=== PATIENT | female | born 1990 | race Two or more races ===

== ENCOUNTER → 2024-08-03 | Outpatient (CLI) | payer MEDICAID | END | disposition home or self-care (01) | LOC: LAB 10:30 | PROVIDERS: ATTEND Obstetrics & Gynecology | DX: N91.2 Amenorrhea, unspecified (principal) | CPT/HCPCS: 36415; 84144; 84702 ==

== ENCOUNTER → 2024-08-05 | Outpatient (CLI) | payer MEDICAID | END | disposition home or self-care (01) | LOC: LAB 10:52 | PROVIDERS: ATTEND Obstetrics & Gynecology | DX: N91.2 Amenorrhea, unspecified (principal) | CPT/HCPCS: 36415; 84144; 84702 ==

== ENCOUNTER → 2024-08-12 | Outpatient (CLI) | payer MEDICAID ==
[2024-08-12 11:12] LABS: Basophils # (auto) 0 10 ^3/uL (0-0.2); Basophils % (auto) 0.4 % (0.0-2.0); Eosinophils # (auto) 0.1 10 ^3/uL (0-0.8); Hematocrit 42.5 % (36.0-46.0); Hemoglobin 14.6 g/dL (12.2-16.2); Lymphocytes # (auto) 1.9 10 ^3/uL (0.4-5.4); Lymphocytes % (auto) 33.4 % (10.0-50.0); Mean Corpuscular Hemoglobin 32.4 pg (28.0-32.0); Mean Corpuscular Hgb Conc. 34.5 g/dL (32.0-36.0); Mean Corpuscular Volume 94.1 fL (80.0-100.0); Monocytes # (auto) 0.4 10 ^3/uL (0-1.3); Monocytes % (auto) 7.1 % (0.0-12.0); Neutrophils # (auto) 3.4 10 ^3/uL (1.6-8.6); Neutrophils % (auto) 58.1 % (37.0-80.0); Nucleated Red Blood Cells % 0.2 %; Platelet Count (auto) 259 10^3/uL (140-450); Red Blood Cells 4.52 10^6/uL (4.0-5.20); Red Cell Distribution Width 12.8 % (11.8-14.3); White Blood Cell 5.8 10^3/uL (4.4-10.8)
[2024-08-12 11:17] LABS: Amphetamine Screen, Urine Neg (NEGATIVE); Benzodiazephine Screen, Urine Neg (NEGATIVE)
[2024-08-12 11:18] LABS: Barbiturate Scree,Urine Neg (NEGATIVE); Cocaine Screen, Urine Neg (NEGATIVE); Opiate Scree,Urine Neg (NEGATIVE); Phencyclidine Screen, Urine Neg (NEGATIVE)
[2024-08-12 11:19] LABS: Cannabinoid Screen, Urine Neg (NEGATIVE)
[2024-08-13 08:06] LABS: RPR Non Reactive (Non Reactive)
[2024-08-13 13:06] LABS: Chlamydia Trachomatis, NAA Negative (Negative); Neisseria gonorrhoeae, NAA Negative (Negative)
== END | disposition home or self-care (01) ==
LOC: LAB 09:45
PROVIDERS: ATTEND Obstetrics & Gynecology
DX: Z31.430 Encounter of female for testing for genetic disease carrier status for procreative management (principal); O23.40 Unspecified infection of urinary tract in pregnancy, unspecified trimester; Z20.1 Contact with and (suspected) exposure to tuberculosis; N39.0 Urinary tract infection, site not specified
CPT/HCPCS: 36415; 80307; 83036; 84144; 84702; 85025; 86592; 86703; 86762; 86850; 86900; 86901; 87086; 87340

== ENCOUNTER 2024-08-30 15:21 | Emergency (ER) | payer MEDICAID ==
[~2024-08-30] VITALS: Ht 162.6 cm; Wt 62.0 kg
[2024-08-30] MEDS: SODIUM CHLORIDE 0.9% 1,000 ML IV ONE (16:15)
[2024-08-30 17:21] LABS: Urine Bacteria None Seen /hpf (None Seen)
[2024-08-30 18:08] LABS: Urine Amorphous Crystal FEW /hpf (None Seen); Urine Blood Negative /uL (Negative); Urine Clarity Turbid (Clear); Urine Color Yellow (Yellow); Urine Mucus FEW (None Seen); Urine Protein, UAD 1+ (Negative); Urine Specific Gravity 1.027 (1.001-1.035); Urine Urobilinogen 2 mg/dL (Negative); Urine WBC 12 /hpf (0 - 5); Urine pH 7.5 (5.0-9.0)
[2024-08-30 18:09] VITALS: BP 102/69; PULSE 84; RESP 14; TEMP 99.2; O2SAT 95
[2024-08-30] MEDS ORDERED: ZOFR4T PO (18:19)
--- NOTE | 2024-08-30 18:19 | ED.PDOC ---
NURSERY RN HPI Comments 33-year-old female complaining of excessive vomiting for the last two weeks. Patient states she was seen by doctors and, she was prescribed Phenergan and is taking it for the last two days but it was not help. Has been unable to hold any food down. Patient states it vomiting all day long. Patient states she was eight weeks , so her 4th . Chief Complaint: Nausea/Vomiting Time Seen by MD: 16:06 Reviewed Notes: Nurses Notes Allergies: Coded Allergies: No Known Drug Allergy (Verified Allergy, Unknown, 08/30/24) Information Source: Patient Past Medical History PAST MEDICAL HISTORY: Denies Surgical History: Denies all surgeries SERVICE PROMOTER SALESPERSON History: No Pertinent SERVICE PROMOTER SALESPERSON History Constitutional: denies: chills, diaphoresis, fatigue, fever, malaise, sweats, weakness, others EENTM: denies: blurred vision, double vision, ear bleeding, ear discharge, ear drainage, ear pain, ear ringing, eye pain, eye redness, hearing loss, mouth pain, mouth swelling, nasal discharge, nose bleeding, nose congestion, nose pain, photophobia, tearing, throat pain, throat swelling, voice changes, others Respiratory: denies: cough, hemoptysis, orthopnea, SOB at rest, shortness of breath, SOB with excertion, stridor, wheezing, others Cardiovascular: denies: chest pain, dizzy spells, diaphoresis, Dyspnea on exertion, edema, irregular heart beat, left arm pain, lightheadedness, palpitations, PND, syncope, others Gastrointestinal: reports: nausea, vomiting; denies: abdomen distended, abdominal pain, blood streaked bowels, constipated, diarrhea, dysphagia, difficulty swallowing, hematemesis, melena, poor appetite, poor fluid intake, rectal bleeding, rectal pain, others Genitourinary: denies: abnormal vagina bleeding, burning, dyspareunia, dysuria, flank pain, frequency, hematuria, incontinence, pain, , vagina discharge, urgency, others Neurological: denies: dizziness, fainting, headache, left sided numbness, left sided weakness, numbness, paresthesia, pre-existing deficit, right sided numbness, right sided weakness, seizure, speech problems, tingling, tremors, weakness, others Musculoskeletal: denies: back pain, gout, joint pain, joint swelling, muscle pain, muscle stiffness, neck pain, others Integumetry: denies: bruises, change in color, change in hair/nails, dryness, laceration, lesions, lumps, rash, wounds, others Allergic/Immunocompromised: denies: Difficulty Healing, Frequent Infections, Hives, Itching, others Physical Exam General Appearance: No Apparent Distress, Normal HEENT: Normal ENT Inspection, Pharynx Normal, TMs Normal Neck: Full Range of Motion, Non-Tender, Normal, Normal Inspection Respiratory: Chest Non-Tender, Lungs Clear, No Accessory Muscle Use, No Respiratory Distress, Normal Breath Sounds Cardiovascular: No Edema, No JVD, No Murmur, No Gallop, Normal Peripheral Pulses, Regular Rate/Rhythm Breast Exam: Deferred Gastrointestinal: No Organomegaly, Non Tender, No Pulsatile Mass, Normal Bowel Sounds, Soft Genitalia: Deferred Pelvic: Deferred Rectal: Deferred Extremities: No calf tenderness, Normal capillary refill, Normal inspection, Normal range of motion, Non-tender, No pedal edema Musculoskeletal : Apperance: Normal Neurologic: Alert, die finisher forging II-XII nml as Tested, No Motor Deficits, Normal Affect, Normal Mood, No Sensory Deficits Cerebellar Function: Normal Reflexes: Normal Skin: Dry, Normal Color, Warm Lymphatic: No Adenopathy Was a procedure done? Was a procedure done?: No Differential Diagnosis (SERVICE PROMOTER SALESPERSON) Comments Hyperemesis X-Ray, Labs, Meds, VS Vital Signs Date Time Temp Pulse Resp B/P (MAP) Pulse Ox O2 Delivery O2 Flow Rate FiO2 08/30/24 16:00 98.0 107 18 110/73 (85) 99 Lab Test 08/30/24 16:02 Range/Units Urine Color Yellow Yellow Urine Clarity Turbid H Clear Urine pH 7.5 5.0-9.0 Urine Specific [place] 1.027 1.001-1.035 Urine Protein 1+ H Negative Urine Ketones 3+ H Negative Urine Blood Negative Negative /uL Urine Nitrite Negative Negative Urine Bilirubin Negative Negative Urine Urobilinogen 2 H Negative mg/dL Urine Leukocyte Esterase 2+ Negative /uL Urine RBC 5 0 - 4 /hpf Urine WBC 12 0 - 5 /hpf Urine Squamous Epithelial Cells Mod <5 /hpf Urine Amorphous Crystals Few None Seen /hpf Urine Bacteria None seen None Seen /hpf Urine Mucus Few None Seen Urine Glucose Normal Normal mg/dL X-Ray, Labs, Meds, VS Comment Imaging: X-rays and CT scans were reviewed and interpreted by this provider, imaging shows no fractures and no pathological disease. Pending radiology review. Laboratory: Labs reviewed and interpreted by this provider. No significant abnormalities noted. Patient has prior medical visits reviewed. Med reconciliation performed Vital signs reviewed Time of 1ST Reevaluation: 18:19 Reevaluation 1ST: Improved Patient Education/Counseling: Diagnosis, Treatment, Need For Follow Up (Patient advised to follow-up in the emergency room in the next 24 to 48 hours if symptoms do not improve. Advised follow-up with PCP in the next 3 to 5 days. Patient verbalized understanding. ) Family Education/Counseling: Diagnosis Departure 1 Departure Time of Disposition: 18:16 Impression: Primary Impression: Hyperemesis gravidarum Disposition: HOME / SELF CARE / HOMELESS Condition: Fair e-Prescriptions Ondansetron Odt 4MG Tab (ZOFRAN PO) 4 Mg Tb 4 MG PO TID PRN, #20 TAB ODT TAB-DISSOLVE IN MOUTH, THEN SWALLOW Prov: JOSH ALMARAZ 08/30/24 Discharged With: Self Critical Care Note Critical Care Time?: No Stability Stability form required: No Heart Score Heart Score: Heart Score Response (Comments) Value History N/A 0 EKG N/A 0 Age N/A 0 Risk Factors N/A 0 Troponin N/A 0 Total 0 JOSH ALMARAZ Aug 30, 2024 18:19
[2024-08-30] MEDS: ONDANSETRON HCL 4 MG/2 ML VIAL IV ONE (18:48)
== END 2024-08-30 19:20 | disposition home or self-care (01) ==
LOC: ER 15:27
DX: O21.0 Mild hyperemesis gravidarum (principal); Z3A.08 8 weeks gestation of pregnancy
CPT/HCPCS: 81001; 96361; 96374; 99283; J2405; J7030

== ENCOUNTER → 2025-01-18 | Outpatient (CLI) | payer MEDICAID ==
[~2025-01-18] MED LIST: ZOFR4T PO
[2025-01-18 09:03] LABS: Basophils # (auto) 0 10 ^3/uL (0-0.2); Basophils % (auto) 0.2 % (0.0-2.0); Eosinophils # (auto) 0.1 10 ^3/uL (0-0.8); Hematocrit 35.7 % (36.0-46.0); Hemoglobin 12.1 g/dL (12.2-16.2); Lymphocytes # (auto) 2.1 10 ^3/uL (0.4-5.4); Lymphocytes % (auto) 26.2 % (10.0-50.0); Mean Corpuscular Hemoglobin 32.3 pg (28.0-32.0); Mean Corpuscular Hgb Conc. 33.8 g/dL (32.0-36.0); Mean Corpuscular Volume 95.5 fL (80.0-100.0); Monocytes # (auto) 0.6 10 ^3/uL (0-1.3); Monocytes % (auto) 7.4 % (0.0-12.0); Neutrophils # (auto) 5.2 10 ^3/uL (1.6-8.6); Neutrophils % (auto) 65.2 % (37.0-80.0); Nucleated Red Blood Cells % 0.1 %; Platelet Count (auto) 209 10^3/uL (140-450); Red Blood Cells 3.74 10^6/uL (4.0-5.20); Red Cell Distribution Width 13.5 % (11.8-14.3)
== END | disposition home or self-care (01) ==
LOC: LAB 08:29
PROVIDERS: ATTEND Obstetrics & Gynecology
DX: Z34.80 Encounter for supervision of other normal pregnancy, unspecified trimester (principal); Z3A.00 Weeks of gestation of pregnancy not specified
CPT/HCPCS: 36415; 82951; 83036; 85025

== ENCOUNTER 2025-02-15 10:56 | Observation (INO) | payer MEDICAID ==
[~2025-02-15] VITALS: Ht 162.6 cm; Wt 61.2 kg
[2025-02-15] MEDS: BETAMETHASONE ACET (30mg/5ml) 5ml Vial 6mg/ml IM ONE (12:39)
[2025-02-15] MEDS ORDERED: NIFE10CA52 PO (12:45)
[2025-02-16] MEDS ORDERED: PREN-96 PO ×2 (11:29)
--- NOTE | 2025-02-16 17:15 | DVHDS2 ---
Physician Discharge Progress N Final Diagnosis: ptl Operations or Procedures: Operations or Procedures nst,sono Condition on Discharge: Good Disposition: Home Discharge Instructions: Diet: Regular Activity: Light activity Medications: na Follow Up Care: Specialist: 1d Discharge Statement: "Patient was advised to return to the ER or call 911 if any headaches, dizziness, shortness of breath, chest pain, abdominal pain, bleeding, fevers, or worsening of medical condition. Patient was counseled about treatment plan, medications, possible side effects, patientverbalized understanding. All questions were answered to the best of my ability. This discharge took greater then 30 minutes in planning, reviewing documentation, counseling the patient, and discussing with other team members." Visit Coding OBGYN Date of Service: Feb 15, 2025 Billing Provider: MANUEL PHELAN DO MAINTENANCE PLUMBER Common Visit Codes: [id number] INP/OBS CARE (HIGH) MAINTENANCE PLUMBER Procedure Codes: 72117-35- NON-STRESS TEST MANUEL PHELAN DO Feb 16, 2025 17:15
== END 2025-02-15 13:04 | disposition home or self-care (01) ==
LOC: LDRP 10:56
PROVIDERS: ADMIT Obstetrics & Gynecology; ATTEND Obstetrics & Gynecology
DX: O60.03 Preterm labor without delivery, third trimester (principal); Z79.899 Other long term (current) drug therapy; Z3A.32 32 weeks gestation of pregnancy
CPT/HCPCS: 59025; 81002; 94760; 96372; G0378; J0702

== ENCOUNTER 2025-02-16 11:00 | Observation (INO) | payer MEDICAID ==
[~2025-02-16] VITALS: Ht 162.6 cm; Wt 70.3 kg
[~2025-02-16 11:00] MED LIST changes: +NIFE10CA52 PO
[2025-02-16] MEDS ORDERED: PREN-96 PO ×2 (11:29)
[2025-02-16] MEDS: BETAMETHASONE ACET (30mg/5ml) 5ml Vial 6mg/ml IM ONE (11:39)
--- NOTE | 2025-02-16 12:26 | DVHDS2 ---
Physician Discharge Progress N Final Diagnosis: ptl 33wks Operations or Procedures: Operations or Procedures nst,sono Condition on Discharge: Good Disposition: Home Discharge Instructions: Diet: Regular, Consistent carbohydrate Activity: Light activity Medications: na Follow Up Care: Specialist: 1w Discharge Statement: "Patient was advised to return to the ER or call 911 if any headaches, dizziness, shortness of breath, chest pain, abdominal pain, bleeding, fevers, or worsening of medical condition. Patient was counseled about treatment plan, medications, possible side effects, patientverbalized understanding. All questions were answered to the best of my ability. This discharge took greater then 30 minutes in planning, reviewing documentation, counseling the patient, and discussing with other team members." Visit Coding OBGYN Date of Service: Feb 16, 2025 Billing Provider: MANUEL PHELAN DO BEHAVIORAL MODIFICATION ASSISTANT Common Visit Codes: [id number] OBS CARE (HIGH) BEHAVIORAL MODIFICATION ASSISTANT Procedure Codes: 63681-79- NON-STRESS TEST MANUEL PHELAN DO Feb 16, 2025 12:26
== END 2025-02-16 11:59 | disposition home or self-care (01) ==
LOC: LDRP 11:00 → UNDOADMOB 11:00 → LDRP 11:09
PROVIDERS: ADMIT Obstetrics & Gynecology; ATTEND Obstetrics & Gynecology
DX: O60.03 Preterm labor without delivery, third trimester (principal); O99.891 Other specified diseases and conditions complicating pregnancy; M54.9 Dorsalgia, unspecified; Z3A.32 32 weeks gestation of pregnancy; Z79.899 Other long term (current) drug therapy; Z98.890 Other specified postprocedural states
CPT/HCPCS: 59025; 81002; 94760; 96372; G0378

== ENCOUNTER 2025-02-21 06:30 | Observation (INO) | payer MEDICAID ==
[~2025-02-21] VITALS: Ht 162.6 cm; Wt 68.5 kg
[~2025-02-21 06:30] MED LIST changes: +PREN-96 PO
--- NOTE | 2025-02-21 11:59 | DVH ---
CLINICAL HISTORY: labor. COMPARISON: None TECHNIQUE: biophysical profile was performed. Transabdominal sonographic images of the fetus we re obtained. Transvaginal imaging was also performed to evaluate the cervix. FINDINGS: The fetus is in cephalic position. heart rate measures 124 BPM. Amniotic fluid index measures 9.6 cm. The placenta is anterior in position with no evidence of previa or abruption. Cervix appears closed and measures up to 3.4 cm in length. BPP profile is an overall score of 8/8, with 2/2 points for breathing, with at least one episode of breathing over a 30 second duration during a 30 minute observation, 2/2 points for m ovements, with 3 or more discrete body or limb movements, 2/2 points for tone, with one or more episodes of extremity extension with return to flexion, or opening and closing of hand, and 2/ 2 points for amniotic fluid, with at least 1 pocket of amniotic fluid that measures 2 cm in 2 perpend icular planes. IMPRESSION: 1. BPP score of 8/8. 2. Cervix appears closed and measures up to 3.4 cm in length.
[2025-02-21] MEDS ORDERED: FAMO20TA10 PO (12:55)
--- NOTE | 2025-02-21 22:39 | DVHDS2 ---
Physician Discharge Progress N Final Diagnosis: testing for PTL Operations or Procedures: Operations or Procedures 34yo IUP@33.5wks. taking procardia, denies UCs/VB VSS NST reactive FKC/PTL precautions reviewed. Dr. Guzman consulted, agrees with POC. Other Interventions Other Interventions [facility] [id number] [place] [id number] Ph: [phone] DIAGNOSTIC IMAGING Diagnostic Imaging Report : [id number] Signed PATIENT: LILLY CHAVEZ ACCT: [id number] UNIT: [id number] : 1990 LOC: LD ROOM / BED: [facility] / A AGE / SEX: 34 / F ADM STATUS: ADM IN SERVICE 112 ORDERING PHYSICIAN: RADHA KAYE CNM PROCEDURE(s): BPP - BIOPHYSICAL PROFILE REASON: PTL ORDER NUMBER(s): [id number], ACCESSION NUMBER(s): [id number] CLINICAL HISTORY: labor. COMPARISON: None TECHNIQUE: biophysical profile was performed. Transabdominal sonographic images of the fetus were obtained. Transvaginal imaging was also performed to evaluate the cervix. FINDINGS: The fetus is in cephalic position. heart rate measures 124 BPM. Amniotic fluid index measures 9.6 cm. The placenta is anterior in position with no evidence of previa or abruption. Cervix appears closed and measures up to 3.4 cm in length. BPP profile is an overall score of 8/8, with 2/2 points for breathing, with at least one episode of breathing over a 30 second duration during a 30 minute observation, 2/2 points for movements, with 3 or more discrete body or limb movements, 2/2 points for tone, with one or more episodes of extremity extension with return to flexion, or opening and closing of hand, and 2/2 points for amniotic fluid, with at least 1 pocket of amniotic fluid that measures 2 cm in 2 perpendicular planes. IMPRESSION: 1. BPP score of 8/8. 2. Cervix appears closed and measures up to 3.4 cm in length. ATED BY: COSTA HOPKINS DO DICTATED DATE/TIME: 02/21/251156 SIGNED BY: COSTA HOPKINS DO SIGNED DATE/TIME: 02/21/251156 CC: Condition on Discharge: Stable Disposition: Home Discharge Instructions: Diet: Regular Activity: See Comment Activity comment: pelvic rest Follow Up/Referral: Maintain all regularly scheduled follow up appointments with Dr. Guzman and [facility] for scheduled NST/BPP. Medications: Continue all medications as directed by OB Physician. Follow Up Care: Specialist: f/u in 1 wk Discharge Statement: "Patient was advised to return to the ER or call 911 if any headaches, dizziness, shortness of breath, chest pain, abdominal pain, bleeding, fevers, or worsening of medical condition. Patient was counseled about treatment plan, medications, possible side effects, patientverbalized understanding. All questions were answered to the best of my ability. This discharge took greater then 30 minutes in planning, reviewing documentation, counseling the patient, and discussing with other team members." Visit Coding OBGYN Date of Service: Feb 21, 2025 Billing Provider: RADHA KAYE CNM BUDGET CONTROLLER Common Visit Codes: [id number] OBS CARE (HIGH) BUDGET CONTROLLER Procedure Codes: 67459-31- NON-STRESS TEST RADHA KAYE CNM Feb 21, 2025 22:39
== END 2025-02-21 13:50 | disposition home or self-care (01) ==
LOC: LDRP 11:00
PROVIDERS: ADMIT Obstetrics & Gynecology; ATTEND Obstetrics & Gynecology
DX: O60.03 Preterm labor without delivery, third trimester (principal); Z98.890 Other specified postprocedural states; Z79.899 Other long term (current) drug therapy; Z3A.33 33 weeks gestation of pregnancy
CPT/HCPCS: 59025; 76819; 81002; 94760; G0378

== ENCOUNTER 2025-02-28 07:02 | Inpatient (IN) | payer MEDICAID ==
[~2025-02-28] VITALS: Ht 162.6 cm; Wt 69.9 kg
[~2025-02-28 07:02] MED LIST changes: +FAMO20TA10 PO
[2025-03-31 20:25] LABS: Fern Testing Negative
[2025-04-01] MEDS ORDERED: LIDOCAINE 2%HCL (LOCAL ANESTH.) INJ 20ML MDV IJ PRN
[2025-04-01] MEDS ORDERED: BUTORPHANOL TARTRATE 2 MG/1 ML VIAL IV PRN
[2025-04-01] MEDS ORDERED: NALBUPHINE HCL 10 MG/1ml INJECTION IV PRN
--- NOTE | 2025-04-01 00:14 | DVH ---
LIMITED SURVEY CLINICAL HISTORY: Induction of Labor/Confirm Presenting Part COMPARISON: Biophysical profile 02/21/2025. TECHNIQUE: Real-time grayscale, color flow and M-mode imaging of the gravid uterus is performed. FINDINGS: Single living intrauterine gestation. Cephalic presentation. Average ultrasound age 36 weeks 5 days. Estimated due date 04/23/2025. heart rate 141 beats per minute. measurements (cm): BPD 9.3, HC 32.6, AC 31.9, FL 7.1. Estimated weight: 2896 g The placenta is anterior, grade 2. The cervix is not clearly visualized. No definite evidence of abr uption or previa at this time. Amniotic fluid index 13.2 cm. Juice Weigher reports good movement on real-time imaging. IMPRESSION: Single living intrauterine as above.
[2025-04-01] MEDS ORDERED: LACT. RINGERS/OXYTOCIN 20UNITS 500 ML IV ONE ×2 (00:15→00:45)
[2025-04-01] MEDS: LACTATED RINGER'S 1,000 ML IV SCH (00:27)
[2025-04-01 00:52] LABS: Basophils # (auto) 0 10 ^3/uL (0-0.2); Basophils % (auto) 0.3 % (0.0-2.0); Eosinophils # (auto) 0 10 ^3/uL (0-0.8); Eosinophils % (auto) 0.5 % (0.0-7.0); Hematocrit 33.8 % (36.0-46.0); Hemoglobin 11.8 g/dL (12.2-16.2); Lymphocytes # (auto) 2.3 10 ^3/uL (0.4-5.4); Lymphocytes % (auto) 27.2 % (10.0-50.0); Mean Corpuscular Hemoglobin 32.4 pg (28.0-32.0); Mean Corpuscular Volume 92.6 fL (80.0-100.0); Monocytes # (auto) 0.5 10 ^3/uL (0-1.3); Monocytes % (auto) 5.5 % (0.0-12.0); Neutrophils # (auto) 5.6 10 ^3/uL (1.6-8.6); Neutrophils % (auto) 66.5 % (37.0-80.0); Nucleated Red Blood Cells % 0.1 %; Platelet Count (auto) 173 10^3/uL (140-450); Red Blood Cells 3.65 10^6/uL (4.0-5.20); White Blood Cell 8.4 10^3/uL (4.4-10.8)
[2025-04-01] MEDS: DERMOPLAST 60ML BOTTLE TOP PRN (00:57)
[2025-04-01] MEDS: WITCH HAZEL-GLYCERIN PAD TOP PRN (00:57)
[2025-04-01] MEDS: PHISODERM TOP SOLN 240ML BTL TOP PRN (00:58)
[2025-04-01 01:09] LABS: INR 0.88 (0.9-1.15); Partial Thromboplastin Time 24.5 SEC (24.5-34.5); Prothrombin Time 9.4 sec (9.3-11.8)
[2025-04-01 01:12] LABS: Urine Bacteria None Seen /hpf (None Seen)
[2025-04-01 01:16] LABS: Alanine Aminotransferase 12 U/L (7-40); Albumin 3.8 g/dL (3.2-4.8); Anion Gap 11 (5-15); Aspartate Aminotransferase 17 U/L (13-40); Blood Urea Nitrogen 11 mg/dL (9-23); Carbon Dioxide 22 mmol/L (20-31); Chloride 105 mmol/L (98-107); Potassium 3.6 mmol/L (3.5-5.1); Sodium 138 mmol/L (136-145); Total Protein 6.4 g/dL (5.7-8.2)
[2025-04-01 01:17] LABS: Bilirubin, Total 0.6 mg/dL (0.2-1.0)
[2025-04-01 01:19] LABS: Alkaline Phosphatase 445 U/L (46-116); Calcium 8.6 mg/dL (8.7-10.4); Glucose 140 mg/dL (74-106)
[2025-04-01 01:28] LABS: Urine Blood Negative /uL (Negative); Urine Clarity Clear (Clear); Urine Color Colorless (Yellow); Urine Protein, UAD Negative (Negative); Urine Specific Gravity 1.007 (1.001-1.035); Urine Squamous Epithelial Cell FEW /hpf (<5); Urine Urobilinogen Normal (Negative); Urine WBC 2 /HPF (0-5); Urine pH 6.5 (5.0-9.0)
[2025-04-01 01:44] LABS: Amphetamine Screen, Urine Neg (NEGATIVE); Barbiturate Scree,Urine Neg (NEGATIVE); Benzodiazephine Screen, Urine Neg (NEGATIVE); Cannabinoid Screen, Urine Neg (NEGATIVE); Cocaine Screen, Urine Neg (NEGATIVE); Opiate Scree,Urine Neg (NEGATIVE); Phencyclidine Screen, Urine Neg (NEGATIVE)
[2025-04-01] MEDS: miSOPROStol 50 MCG per PRE-CUT 1/2 TAB PO PRN (04:01)
--- NOTE | 2025-04-01 06:03 | DVHHP ---
ADMIT DATE: 04/01/2025 CHIEF COMPLAINT: Labor. HISTORY OF PRESENT ILLNESS: The patient is a 34-year-old, 4, para 3 with EDC 04/06/2025, estimated gestational age of 39 weeks, admitted for labor. The patient was noted to be 3 cm, 80%, -2. She was originally scheduled for induction on 04/01/2024. However, she presented in early labor. PAST MEDICAL HISTORY: None. PAST SURGICAL HISTORY: None. SOCIAL HISTORY: None. FAMILY HISTORY: None. OBSTETRIC/GYNECOLOGIC HISTORY: Three normal vaginal deliveries. GBS negative. Blood type O+. REVIEW OF SYSTEMS: Consistent with HPI. ALLERGIES: No known drug allergies. PHYSICAL EXAMINATION: VITAL SIGNS: Stable. Afebrile. HEENT: Within normal limits. CARDIOVASCULAR: Regular rate and rhythm. LUNGS: Clear to auscultation. BREASTS: Symmetrical. No masses. ABDOMEN: Gravid. Positive heart tones. PELVIC: 3 cm, 80%, -2. EXTREMITIES: No clubbing, cyanosis, edema. IMPRESSION: Intrauterine at 39+ weeks, in labor. PLAN: Augmentation of labor. Informed consent obtained. DO GER Meng/CLINTON TID: [id number] RECEIPT: [id number]
[2025-04-01] MEDS: NALOXONE HCL 0.4 MG/ML VIAL IV ONE (07:30)
--- NOTE | 2025-04-01 08:24 | DVHPN2 ---
Chief Complaints Patient reports: No new complaints Nursing reports: No new complaints Objective Medications Current Medications Medications (Trade) Dose Ordered Sig/Jeremy Route PRN Reason Start Time Stop Time Status Last Admin Benzocaine (Dermoplast) 1 applic PRN PRN TOP PERINEAL AREA DISCOMFORT 04/01/25 00:00 04/01/25 00:57 Lactated Ringer's 1,000 ml @ 125 mls/hr Q8H IV 04/01/25 00:00 04/01/25 00:27 Lidocaine HCl (Xylocaine) 20 ml ONCE PRN IJ PERINEAL AREA DISCOMFORT 04/01/25 00:00 Misoprostol (Cytotec) 50 mcg Q4HPRN PRN PO CERVICAL RIPENING 04/01/25 04:00 04/01/25 04:01 Nalbuphine HCl (Nubain) 10 mg Q4HP PRN IV MODERATE PAIN (4-6 PAIN SCALE) 04/01/25 00:00 Oxytocin 1,000 ml @ 6 ml/hr Q24H IV 04/01/25 04:45 Sodium Lauryl Sulfate (Phisoderm) 240 ml PRN PRN TOP PERINEAL AREA DISCOMFORT 04/01/25 00:00 04/01/25 00:58 Witch Vicki (Tucks) 1 pad PRN PRN TOP PERINEAL AREA DISCOMFORT 04/01/25 00:00 04/01/25 00:57 Others ve-4cm/70/-2 Studies Laboratory Tests 04/01/25 00:28 Test 04/01/25 00:28 Range/Units Serum Glucose 140 H 74-106 mg/dL Ass/Plan Assessment early labor Plan start pitocin Visit Coding OBGYN Date of Service: Apr 01, 2025 Billing Provider: MANUEL PHELAN DO HEALTHCARE ASSOCIATE Common Visit Codes: [id number] OBS CARE (HIGH) HEALTHCARE ASSOCIATE Procedure Codes: 86528-34- NON-STRESS TEST MANUEL PHELAN DO Apr 01, 2025 08:24
[2025-04-01] MEDS: LIDOCAINE HCL 2 %PF INJ 10ML AMP IJ ONE (08:38)
[2025-04-01] MEDS: ROPIVACAINE HCL 200 ML ONE (08:40)
[2025-04-01] MEDS: ePHEDrine SULFATE 50 MG/ML AMP IV ONE (09:14)
[2025-04-01] MEDS: LACT. RINGERS/OXYTOCIN 20UNITS 1,000 ML IV SCH (09:33)
[2025-04-01] MEDS ORDERED: ONDANSETRON ODT 4 MG TAB PO PRN (12:00)
--- NOTE | 2025-04-01 12:08 | LDN2 ---
Labor and Delivery Note Date 04/01/25 Age 34 4 Para 4 EDC 6-12 EGA 39wks Diagnosis labor augmentation Vaginal Delivery: VTX Vacuum Assisted: No Placenta: Spontaneous Sex: Female Apgars 8-9 Nuchal Cord Transected: Yes Amniotic Fluid: Clear Anesthesia epidural Episiotomy: No Extension: No Repaired with na EBL 300ml Labs Laboratory Tests 08/12/24 10:05: Hepatitis B Surface Antigen Negative, HIV (1&2) Antibody Negative, Rubella Antibody Positive Blood Bank 04/01/25 00:28: Blood Type O POSITIVE Complications none Conditions stable Comments/Significant Med Jaguar spec exam no cxal lac Visit Coding OBGYN Date of Service: Apr 01, 2025 Billing Provider: MANUEL PHELAN DO DINKEY ENGINEER Common Visit Codes: [id number] INP/OBS CARE(HIGH) DINKEY ENGINEER Procedure Codes: 25548-CEB DELIVERY ONLY MANUEL PHELAN DO Apr 01, 2025 12:08
[2025-04-01] MEDS: ceFAZolin 1GM/50ML 50 ML IV SCH (12:20)
[2025-04-01] MEDS: ACETAMINOPHEN 325 MG TAB PO PRN (14:34)
[2025-04-01 15:00] VITALS: BP 113/63; PULSE 84; RESP 16; TEMP 98.3; O2SAT 98
[2025-04-01 19:00] VITALS: BP 102/65; PULSE 73; RESP 16; TEMP 98; O2SAT 97
[2025-04-01] MEDS ORDERED: LACTATED RINGER'S 1,000 ML IV SCH (19:30)
[2025-04-01] MEDS: IBUPROFEN 600 MG TAB PO PRN (19:35)
[2025-04-01 23:00] VITALS: BP 104/64; PULSE 74; RESP 17; TEMP 98.1; O2SAT 97
[2025-04-02 03:00] VITALS: BP 108/67; PULSE 78; RESP 18; TEMP 98; O2SAT 97
--- NOTE | 2025-04-02 05:25 | DVHPN2 ---
Progress Note Date Seen: Apr 02, 2025 Subjective S: Lochia minimal Tolerating regular diet well. Ambulating and voiding well w/o feeling lightheaded or dizzy. Passing flatus but no BM yet. Breast feeding. Contraceptive plan: Contemplating BTL Desires and requests to be discharged home today vital signs Vital Sign Date Time Temp Pulse Resp B/P (MAP) Pulse Ox O2 Delivery O2 Flow Rate FiO2 04/02/25 03:00 98.0 78 18 108/67 (81) 97 98.0 04/01/25 19:00 Room Air Total Intake and Output 04/01/25 04/01/25 04/02/25 15:00 23:00 07:00 Output Total 1000 ml 2800 ml Balance -1000 ml -2800 ml medications Current Medications Medications Dose Ordered Sig/Jeremy Route Start Time Stop Time Status Last Admin Dose Admin Lactated Ringer's 1,000 ml @ 125 mls/hr Q8H IV 04/01/25 00:00 04/01/25 08:41 125 MLS/HR Nalbuphine HCl 10 mg Q4HP PRN IV 04/01/25 00:00 Cancel Witch Vicki 1 pad PRN PRN TOP 04/01/25 00:00 04/01/25 00:57 1 PAD Sodium Lauryl Sulfate 240 ml PRN PRN TOP 04/01/25 00:00 04/01/25 00:58 240 ML Benzocaine 1 applic PRN PRN TOP 04/01/25 00:00 04/01/25 00:57 1 APPLIC Lidocaine HCl 20 ml ONCE PRN IJ 04/01/25 00:00 Cancel Ibuprofen 600 mg Q6HP PRN PO 04/01/25 12:00 04/02/25 04:10 600 MG Acetaminophen 650 mg Q4HP PRN PO 04/01/25 12:00 04/01/25 14:34 650 MG Ondansetron HCl 4 mg Q4HPRN PRN PO 04/01/25 12:00 Lactated Ringer's 1,000 ml @ 70 mls/hr [id number] IV 04/01/25 19:30 UNV laboratory and microbiology Laboratory Tests 04/01/25 00:28 Test 04/01/25 00:28 Range/Units Serum Glucose 140 H 74-106 mg/dL Objective O: A&O x3 NAD. Afebrile, VSS Chest: heart and lung sounds normal. Breasts: Nipples intact w/o cracks or soreness Abdomen: normal BS, soft, non-tender, no rebound or guarding, fundus firm @ U- 1, lochia minimal Perineum:-Intact, no edema, or erythema, Extremities: no edema or tenderness Lochia - minimal Assessment/Plan A/P 34yo now ppd#1 s/p , doing well. Blood Type: O Rh: Positive Breast feeding and Formula feeding Rubella Immune Pain control with oral medications Bowel regimen: Increase fluid intake and fiber in diet, Laxative PRN PP BCM Plan: contemplating BTL Discharge plan: May discharge home later today if condition remains stable Plan discussed with: Patient, Spouse Visit Coding OBGYN Date of Service: Apr 02, 2025 Billing Provider: MIRIAM GURROLA CNM PAINT LABORATORY TECHNICIAN Common Visit Codes: [id number] INP/OBS CARE(HIGH) MIRIAM GURROLA CNM Apr 02, 2025 05:25
--- NOTE | 2025-04-02 05:33 | DVHDS2 ---
Discharge Summary Date of Admission Apr 01, 2025 at 00:00 Date of Discharge: Apr 02, 2025 Admitting Diagnosis IUP at 39w 2d Early labor Labs/Diagnostic Data: Laboratory Results Test 04/01/25 00:28 04/01/25 00:25 03/31/25 19:50 White Blood Count 8.4 10^3/uL (4.4-10.8) Red Blood Count 3.65 10^6/uL (4.0-5.20) Hemoglobin 11.8 g/dL (12.2-16.2) Hematocrit 33.8 % (36.0-46.0) Mean Corpuscular Volume 92.6 fL (80.0-100.0) Mean Corpuscular Hemoglobin 32.4 pg (28.0-32.0) Mean Corpuscular Hemoglobin Concent 35.0 g/dL (32.0-36.0) Red Cell Distribution Width 14.0 % (11.8-14.3) Platelet Count 173 10^3/uL (140-450) Mean Platelet Volume 8.6 fL (6.9-10.8) Neutrophils (%) (Auto) 66.5 % (37.0-80.0) Lymphocytes (%) (Auto) 27.2 % (10.0-50.0) Monocytes (%) (Auto) 5.5 % (0.0-12.0) Eosinophils (%) (Auto) 0.5 % (0.0-7.0) Basophils (%) (Auto) 0.3 % (0.0-2.0) Neutrophils # (Auto) 5.6 10 ^3/uL (1.6-8.6) Lymphocytes # (Auto) 2.3 10 ^3/uL (0.4-5.4) Monocytes # (Auto) 0.5 10 ^3/uL (0-1.3) Eosinophils # (Auto) 0 10 ^3/uL (0-0.8) Basophils # (Auto) 0 10 ^3/uL (0-0.2) Nucleated Red Blood Cells 0.1 % Prothrombin Time 9.4 sec (9.3-11.8) Prothrombin Time INR 0.88 (0.9-1.15) Activated Partial Thromboplast Time 24.5 SEC (24.5-34.5) Sodium Level 138 mmol/L (136-145) Potassium Level 3.6 mmol/L (3.5-5.1) Chloride Level 105 mmol/L (98-107) Carbon Dioxide Level 22 mmol/L (20-31) Anion Gap 11 (5-15) Blood Urea Nitrogen 11 mg/dL (9-23) Creatinine 0.58 mg/dL (0.550-1.02) Glomerular Filtration Rate Calc 122 mL/min (>90) BUN/Creatinine Ratio 19.0 (10.0-20.0) Serum Glucose 140 mg/dL (74-106) Calcium Level 8.6 mg/dL (8.7-10.4) Total Bilirubin 0.6 mg/dL (0.2-1.0) Aspartate Amino Transferase (AST) 17 U/L (13-40) Alanine Aminotransferase (ALT) 12 U/L (7-40) Alkaline Phosphatase 445 U/L (46-116) Total Protein 6.4 g/dL (5.7-8.2) Albumin 3.8 g/dL (3.2-4.8) Treponema pallidum Antibody Non-reactive (Negative) Hepatitis C Antibody Negative (Negative) Urine Color Colorless (Yellow) Urine Clarity Clear (Clear) Urine pH 6.5 (5.0-9.0) Urine Specific [place] 1.007 (1.001-1.035) Urine Protein Negative (Negative) Urine Ketones Negative (Negative) Urine Blood Negative /uL (Negative) Urine Nitrite Negative (Negative) Urine Bilirubin Negative (Negative) Urine Urobilinogen Normal mg/dL (Negative) Urine Leukocyte Esterase Negative /uL (Negative) Urine RBC <1 /hpf (0 - 4) Urine Microscopic WBC 2 /HPF (0-5) Urine Squamous Epithelial Cells Few /hpf (<5) Urine Bacteria None seen /hpf (None Seen) Urine Glucose Normal mg/dL (Normal) Urine Opiates Screen Neg (NEGATIVE) Urine Fentanyl Screen Neg (NEGATIVE) Urine Barbiturates Screen Neg (NEGATIVE) Urine Phencyclidine Screen Neg (NEGATIVE) Urine Amphetamines Screen Neg (NEGATIVE) Urine Benzodiazepines Screen Neg (NEGATIVE) Urine Cocaine Screen Neg (NEGATIVE) Urine Cannabinoids Screen Neg (NEGATIVE) Amniotic Fluid Ferning Test Negative Placental Cwaky-[id number] Negative Other Laboratory Tests 04/01/25 00:28 Brief Hx & Hospital Course: Admitted on 03/31/25 at 39w 2d EGA for in early labor. Patient then had an uneventful labor, got labor epidural for pain relief. She progressed to 2nd stage of labor and had a over an intact perineum on 04/01/25 ( See Delivery Note for details) Normal course; meeting milestones w/o any problem or complications. Operations or Procedures Condition at Discharge: Good Final Diagnosis/Problems List Term - Delivered Discharge Disposition: Home Discharge Instruct/Medications Diet: Regular Diet comment: Routine regular diet rich in fiber, protein, iron and vitamin C with adequate fluid intake. Activity: No Restrictions, As Tolerated Activity comment: Unrestricted. Advance as tolerated. No heavy lifting, pushing or straining. Pelvic rest x 6weeks Follow Up/Referral: self care instructions given. emergency signs and symptoms including but not limited to pre-eclampsia precautions and signs of infection, PPH & of PPD reviewed with patient. Follow up with OB Provider in 1 week Medications: Ibuprofen 600mg every 6 hours as needed for pain. Continue Vitamin and iron Discharge Statement: self care instructions given. emergency signs and symptoms including but not limited to pre-eclampsia precautions and signs of infection, PPH & of PPD reviewed with patient. Follow up with OB Provider in 1 week "Patient was advised to return to the ER or call 911 if any headaches, dizziness, shortness of breath, chest pain, abdominal pain, bleeding, fevers, or worsening of medical condition. Patient was counseled about treatment plan, medications, possible side effects, patientverbalized understanding. All questions were answered to the best of my ability. This discharge took greater then 30 minutes in planning, reviewing documentation, counseling the patient, and discussing with other team members." ASSESSMENT ASSESSMENT Hospital Course Admitted on 03/31/25 at 39w 2d EGA for in early labor. Patient then had an uneventful labor, got labor epidural for pain relief. She progressed to 2nd stage of labor and had a over an intact perineum on 04/01/25 ( See Delivery Note for details) Normal course; meeting milestones w/o any problem or complications. Assessment Term - Delivered Visit Coding OBGYN Date of Service: Apr 02, 2025 Billing Provider: MIRIAM GURROLA CNM [employer] Common Visit Codes: 38620-SPD/OBS DISCH DAY <30MIN MIRIAM GURROLA CNM Apr 02, 2025 05:32
[2025-04-02 07:00] VITALS: BP 107/69; PULSE 77; RESP 16; TEMP 98.3; O2SAT 98
[2025-04-02] MEDS ORDERED: IBU600T PO (11:48)
== END 2025-04-02 13:12 | disposition home or self-care (01) | DRG 560 ==
LOC: UNDOADMOB 03-31 19:30 → LDRP 03-31 19:30 → OBSVTOIN 04-01 → LDRP 04-01 00:49
PROVIDERS: ADMIT Obstetrics & Gynecology; ATTEND Obstetrics & Gynecology
PROC: 10E0XZZ Delivery of Products of Conception, External Approach (ICD-10-PCS; principal; 2025-04-01)
PROC: 3E033VJ Introduction of Other Hormone into Peripheral Vein, Percutaneous Approach (ICD-10-PCS; 2025-04-01)
PROC: 3E0R3BZ Introduction of Anesthetic Agent into Spinal Canal, Percutaneous Approach (ICD-10-PCS; 2025-04-01)
PROC: 00HU33Z Insertion of Infusion Device into Spinal Canal, Percutaneous Approach (ICD-10-PCS; 2025-04-01)
DX: O69.81X0 Labor and delivery complicated by cord around neck, without compression, not applicable or unspecified (principal); Z37.0 Single live birth; Z3A.39 39 weeks gestation of pregnancy
CPT/HCPCS: 36415; 59025; 59409; 62282; 76805; 80053; 80307; 81001; 81002; 84112; 85025; 85610; 85730; 86780; 86803; 86850; 86900; 86901; 94760; 94762; 96360; 96361; 96365; 96366; G0378; J2590

== ENCOUNTER → 2025-03-01 | Outpatient (CLI) | payer MEDICAID ==
[2025-03-01 10:05] LABS: Basophils # (auto) 0 10 ^3/uL (0-0.2); Basophils % (auto) 0.4 % (0.0-2.0); Eosinophils # (auto) 0.1 10 ^3/uL (0-0.8); Eosinophils % (auto) 0.9 % (0.0-7.0); Hematocrit 34.8 % (36.0-46.0); Hemoglobin 12.2 g/dL (12.2-16.2); Lymphocytes # (auto) 2.5 10 ^3/uL (0.4-5.4); Lymphocytes % (auto) 27.6 % (10.0-50.0); Mean Corpuscular Hemoglobin 32.5 pg (28.0-32.0); Mean Corpuscular Hgb Conc. 34.9 g/dL (32.0-36.0); Mean Corpuscular Volume 93.1 fL (80.0-100.0); Monocytes # (auto) 0.8 10 ^3/uL (0-1.3); Monocytes % (auto) 8.9 % (0.0-12.0); Neutrophils # (auto) 5.6 10 ^3/uL (1.6-8.6); Neutrophils % (auto) 62.2 % (37.0-80.0); Platelet Count (auto) 191 10^3/uL (140-450); Red Blood Cells 3.74 10^6/uL (4.0-5.20); Red Cell Distribution Width 13.3 % (11.8-14.3); White Blood Cell 8.9 10^3/uL (4.4-10.8)
[2025-03-03 07:07] LABS: Chlamydia Trachomatis, NAA Negative (Negative); Neisseria gonorrhoeae, NAA Negative (Negative)
== END | disposition home or self-care (01) ==
LOC: LAB 09:51
PROVIDERS: ATTEND Obstetrics & Gynecology
DX: Z34.83 Encounter for supervision of other normal pregnancy, third trimester (principal); Z3A.34 34 weeks gestation of pregnancy; Z72.51 High risk heterosexual behavior
CPT/HCPCS: 36415; 85025; 86780

== ENCOUNTER → 2025-05-30 | Outpatient (CLI) | payer MEDICAID ==
[~2025-05-30] VITALS: Ht 162.6 cm; Wt 67.1 kg
[~2025-05-30] MED LIST changes: +CALC280T PO; +HYDROmorphone HCL 2 MG/ML VL/or syr ONE; +IBU600T PO; +PROPOFOL 10 MG/ML 20 ML IV ONE; +ceFAZolin 2 GM/D5W50ml 50 ML IV ONE; +fentaNYL CITRATE 100 MCG/2 ML VL ONE
--- NOTE | 2025-05-30 11:34 | DVHHP ---
ADMIT DATE: 06/02/2025 CHIEF COMPLAINT: Desires bilateral tubal ligation. HISTORY OF PRESENT ILLNESS: The patient is a 34-year-old female, 4, para 4, admitted for bilateral tubal ligation. The patient had 4 vaginal deliveries and desires to have bilateral tubal ligation. Risks, complications and method of the tubal ligation, which is a Filshie clip, were discussed with the patient. Failure rate was discussed with the patient. The patient fully understands. She wishes to proceed with the planned procedure. PAST MEDICAL HISTORY: None. PAST SURGICAL HISTORY: Butt implants 2017, breast implants 2011, tummy tuck 2019. ALLERGIES: No known drug allergies. [employer] HISTORY: Four normal vaginal deliveries. REVIEW OF SYSTEMS: Consistent with HPI. PHYSICAL EXAMINATION: VITAL SIGNS: Stable, afebrile. HEENT: Within normal limits. CARDIOVASCULAR: Regular rate and rhythm. LUNGS: Clear to auscultation. BREASTS: Symmetrical. No masses. ABDOMEN: Soft, nontender. PELVIC: External genitalia within normal limits. Vagina normal. Cervix is grossly normal. Uterus is 8-week size. Adnexa nonpalpable. EXTREMITIES: No clubbing, cyanosis, or edema. IMPRESSION: Multiparity, desires tubal sterilization. PLAN: Laparoscopic placement of Filshie clips. Informed consent was obtained. Risks and complications of surgery including infection, bleeding, hematoma formation, injury to bowel or bladder, surrounding organ, possibility of DVT, pulmonary embolism, and risks of anesthesia were discussed with the patient. Options were reviewed. All questions were answered. Failure rate with tubal sterilization was discussed with the patient. The patient wishes to proceed with the planned procedure. DO KAIT Meng TID: [id number] RECEIPT: [id number]
[2025-05-30 12:10] LABS: Hematocrit 42.4 % (36.0-46.0); Hemoglobin 14.6 g/dL (12.2-16.2); Mean Corpuscular Hemoglobin 31.4 pg (28.0-32.0); Mean Corpuscular Volume 91.5 fL (80.0-100.0); Nucleated Red Blood Cells % 0.1 %
[2025-05-30 12:13] LABS: Urine Protein, UAD Negative (Negative)
[2025-05-30 12:20] LABS: INR 0.96 (0.9-1.15); Partial Thromboplastin Time 26.8 SEC (24.5-34.5); Prothrombin Time 10.2 sec (9.3-11.8)
[2025-05-30 12:26] LABS: Alanine Aminotransferase 13 U/L (7-40); Albumin 4.8 g/dL (3.2-4.8); Alkaline Phosphatase 67 U/L (46-116); Anion Gap 6 (5-15); BUN/Creatinine Ratio 12.0 (10.0-20.0); Bilirubin, Total 1.0 mg/dL (0.2-1.0); Blood Urea Nitrogen 9 mg/dL (9-23); Calcium 9.7 mg/dL (8.7-10.4); Carbon Dioxide 30 mmol/L (20-31); Chloride 103 mmol/L (98-107); Glucose 85 mg/dL (74-106); Potassium 4.3 mmol/L (3.5-5.1); Sodium 139 mmol/L (136-145); Total Protein 7.7 g/dL (5.7-8.2)
== END | disposition home or self-care (01) ==
LOC: LAB 11:34 → EDSTATUS 06-02 07:00
PROVIDERS: ATTEND Obstetrics & Gynecology
DX: Z30.2 Encounter for sterilization (principal); Z53.8 Procedure and treatment not carried out for other reasons; Z64.1 Problems related to multiparity; Z98.51 Tubal ligation status; Z98.890 Other specified postprocedural states
CPT/HCPCS: 36415; 80053; 81001; 81025; 84702; 85025; 85610; 85730; 86850; 86900; 86901; J2704